=== PATIENT | female | born 1940 | race Two or more races ===

== ENCOUNTER 2017-10-13 08:13 | Outpatient (CLI) | payer OTHER | END 2017-10-13 08:23 | disposition home or self-care (01) | LOC: SONOGRAMA 08:13 | DX: E04.2 Nontoxic multinodular goiter (principal) ==

== ENCOUNTER 2022-12-23 07:50 | Outpatient (CLI) | payer OTHER | END 2022-12-23 07:54 | disposition home or self-care (01) | LOC: RX STUDY 07:50 | PROVIDERS: ATTEND Student in an Organized Health Care Education/Training Program | DX: R13.10 Dysphagia, unspecified (principal) ==

== ENCOUNTER → 2023-12-29 | Outpatient (CLI) | payer OTHER | END | disposition home or self-care (01) | LOC: SONOGRAMA 13:41 | PROVIDERS: ATTEND Internal Medicine | DX: R31.9 Hematuria, unspecified (principal) ==